=== PATIENT | male | born 1955 | race American Indian/Alaskan Native ===

== ENCOUNTER 2017-01-09 11:07 | Outpatient (CLI) | payer BC ==
--- NOTE | 2017-01-09 13:47 | XRay Report ---
CHEST 2 VIEWS INDICATION: Preop. COMPARISON: None similar. FINDINGS: PA and lateral chest radiographs demonstrate normal cardiomediastinal silhouette. Clear lungs. Intact bones. Few upper abdominal ventral hernia repair mike incidentally noted. CONCLUSION: No acute disease in the chest. Thank you for the opportunity to participate in this patient's care.
--- NOTE | 2017-01-09 15:42 | Cat Scan Report ---
CT ABDOMEN AND PELVIS WITH CONTRAST: 01/09/17 11:07:00 CLINICAL: Prostate cancer. COMPARISON: None. TECHNIQUE: Volumetric acquisition and 1.25 millimeter scan reconstructions after the uneventful intravenous injection of 100 cc Omnipaque 300. Consent was obtained prior to the administration of contrast. Oral contrast was also given. FINDINGS: Abdomen: The lung bases are clear.Normal liver, bile ducts and gallbladder. Normal liver size, contour and density. Several benign hepatic cysts and a liver mass. The largest cyst is at the dome of the liver and measures 2.4 cm. Normal bile duct status post cholecystectomy. Normal stomach, duodenum and spleen. The pancreas is normal except for a 6 mm cyst in the pancreatic tail and an enlarged duct measuring 4 mm. Normal aorta and inferior vena cava. Normal small bowel.Normal ascending, transverse and descending colon. An appendix is not identified. There is an intact ventral abdominal wall mesh graft. No ventral hernia or inguinal hernia. Several small less than 1 cm para-aortic and pericaval lymph nodes but no gross lymphadenopathy. No ascites. Pelvis: The prostate is mildly enlarged and extends into the urinary bladder floor. Measures 3.9 x 4.9 cm. The urinary bladder is otherwise normal with normal wall thickness.An abnormal lymph node adjacent to the left seminal vesicle measures approximately 2.0 x 1.0 cm. Normal rectum and sigmoid colon. Bone windows demonstrate no suspicious bone lesion. IMPRESSION:1. Mild prostate enlargement and a suspicious 2 cm lymph node adjacent to the left seminal vesicle. Consider CT PET and/or percutaneous CT-guided biopsy of a lymph node. 2. Benign hepatic cysts. 3. Status post cholecystectomy. 4. A probably benign 6 mm pancreatic tail cyst. Recommend CT followup in six months. 5. No evidence of skeletal metastasis.
== END 2017-01-09 11:08 | disposition home or self-care (01) ==
LOC: SPVIMAG 11:07
PROVIDERS: ATTEND Internal Medicine
DX: Z01.818 Encounter for other preprocedural examination (principal); C61 Malignant neoplasm of prostate; K86.2 Cyst of pancreas; K76.89 Other specified diseases of liver; N40.0 Benign prostatic hyperplasia without lower urinary tract symptoms; Z90.49 Acquired absence of other specified parts of digestive tract
CPT/HCPCS: 71020; 74177; Q9967